=== PATIENT | male | born 2000 | race Caucasian/White ===

== ENCOUNTER 2024-05-26 21:52 | Observation (INO) | payer OTHER, SELFPAY ==
[2024-05-26] VITALS (13 sets, daily range): BP systolic 130–148; BP diastolic 68–105; PULSE 88–104; RESP 16–23; TEMP 36.8–37.1; O2SAT 91–98
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
--- NOTE | 2024-05-26 22:02 | ED.GENADULT ---
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 Fracture type: closed Fracture morphology: other extra-articular Qualified Code(s): S52.552A - Other extraarticular fracture of lower end of left radius, initial encounter for closed fracture Admit Date/Time: 05/27/24 01:01 Admit Provider: Manda Bryan
--- NOTE | 2024-05-26 22:03 | EKG_ITS ---
[place] [id number] [place] [id number] Test Date: 2024-05-26 Pat Name: Robin York Department: 

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
--- NOTE | 2024-05-26 22:07 | DI.RAD.S_ITS ---
PROCEDURE: XR HAND RT MIN 3V INDICATIONS: right fifth finger injury TECHNIQUE: 3 views of the hand(s) acquired. COMPARISON: None. FINDINGS: Bones: No fractures or dislocations. Carpal bones are normally aligned. No suspicious bony lesions. Soft tissues: Soft tissue laceration adjacent to 5th finger at the level of 5th middle phalanx/PIP joint is seen. No radiopaque foreign bodies. No suspicious soft tissue calcifications. IMPRESSION: No acute right hand fracture or dislocation. Laceration near 5th PIP joint. No radiopaque foreign bodies seen. Dictated by: Luis M Valerio M.D. on 05/26/2024 at 23:21 Approved by: Luis M Valerio M.D. on 05/26/2024 at 23:22
[2024-05-26] MEDS: HYDROMORPHONE 0.5 MG INJ IV ×3 (22:10→22:46)
[2024-05-26] MEDS: ONDANSETRON 4 MG/2 ML INJ IV (22:10)
[2024-05-26 22:13] LABS: Add Manual Diff / Slide Review NO; Basophils Absolute Auto 100 /uL (0-100); Basophils Percent Auto 0.4 % (0-2); Eosinophils Absolute Auto 100 /uL (0-450); Eosinophils Percent Auto 0.5 % (2-4); Hemoglobin 16.9 g/dL (13.5-17.5); Lymphocytes Absolute Auto 1900 /uL (1100-4500); Mean Corpuscular HGB Conc 35.1 % (30-36); Mean Corpuscular Hemoglobin 31.1 PG (26-34); Mean Corpuscular Volume 88.6 fL (80-100); Monocytes Absolute Auto 700 /uL (0-900); Monocytes Percent Auto 5.2 % (3-14); Neutrophils Absolute Auto 11700 /uL (1500-7000); Neutrophils Percent Auto 80.9 % (50-75); Platelet Count 224 X10^3/uL (150-400); Red Blood Cell Count 5.41 X10^6/uL (4.5-5.9); Red Cell Distribution Width 12.8 % (11.6-14.8); White Blood Cell Count 14.5 X10^3/uL (4.5-11.0)
[2024-05-26 22:21] LABS: Prothrombin Time 11.3 SECONDS (9.4-12.5)
[2024-05-26 22:24] LABS: PTT Partial Thromboplastin Tim 28 SECONDS (25.1-36.5)
[2024-05-26 22:26] LABS: Alanine Aminotransferase 87 IU/L (<50); Albumin Globulin Ratio 1.5 (1.0-2.8); Alkaline Phosphatase 66 U/L (38-126); Aspartate Aminotransferase 84 IU/L (17-59); BUN Creatinine Ratio 7.3 (6-22); Bilirubin Total 0.7 mg/dL (0.2-1.3); Blood Urea Nitrogen 8 mg/dL (9-20); Calcium 8.7 mg/dL (8.4-10.2); Carbon Dioxide 20 mmol/L (22-32); Chloride 104 mmol/L (98-107); Estimated Glomerular Filt Rate > 60 mL/min (>60); Ethanol (ETOH) 189 mg/dL; Globulin 3.4 g/dL (1.7-4.1); Glucose 110 mg/dL (70-100); HEMOLYSIS < 15 (0-50); Lactate (Lactic Acid) 2.6 mmol/L (0.7-2.1); Lipase 86 U/L (23-300); Sodium 139 mmol/L (137-145); Total Protein 8.4 g/dL (6.3-8.2)
--- NOTE | 2024-05-26 22:34 | PC.NURSE ---
Now back from imaging
[2024-05-26] MEDS: TET,DIPH,PERTUSS(ACELL),VAC/PF 0.5 ML SYRINGE IM (22:39)
[2024-05-26] MEDS: SODIUM CHLORIDE 0.9% 1,000 ML 1000 ML IV (22:42)
[2024-05-26] MEDS: CEFAZOLIN 2 GM/100 ML PREMIX 100 ML IV (22:47)
[2024-05-26 23:40] LABS: Lactate (Lactic Acid) 1.8 mmol/L (0.7-2.1)
[2024-05-26 23:44] LABS: Reflexed Lactate in 2 Hours Y
--- NOTE | 2024-05-26 23:54 | PC.WOUNDPHOT ---
Right fifth digit open wound
--- NOTE | 2024-05-26 23:57 | DI.RAD.S_ITS ---
PROCEDURE: XR FOREARM LT 2V INDICATIONS: left forearm TECHNIQUE: 2 views of the forearm were acquired. COMPARISON: [facility], CR, XR WRIST LT 2V, 05/26/2024, 22:35. [facility], CR, XR HAND RT MIN 3V, 05/26/2024, 22:35. FINDINGS: Bones: Again noted is comminuted and displaced fracture involving distal radial shaft with overlapping and dorsal angulation at fracture site. No proximal to mid forearm fracture. There is interval reduction of distal radial fracture and dislocation at distal radial ulnar joint with improved forearm alignment. Soft tissues: No suspicious soft tissue calcifications or masses. IMPRESSION: Suggestion of interval reduction of earlier noted comminuted distal radial fracture and distal radial ulnar joint dislocation with improved left wrist alignment. No proximal to mid forearm fracture. Dictated by: Luis M Valerio M.D. on 05/27/2024 at 0:30 Approved by: Luis M Valerio M.D. on 05/27/2024 at 0:32
--- NOTE | 2024-05-26 23:59 | DI.RAD.S_ITS ---
PROCEDURE: XR FINGER RT MIN 2V INDICATIONS: right fifth finger XRay series TECHNIQUE: AP hand, 2 views of the 5th finger(s) acquired. COMPARISON: None. FINDINGS: Bones: Tiny calcification adjacent to radial aspect of 5th middle phalangeal base concerning for tiny chip fracture in this area suggest clinical correlation. No suspicious bony lesions. Soft tissues: Laceration and soft tissue swelling surrounding 5th PIP joint is seen. Faint tiny radiodensities are noted at the site of laceration concerning for tiny foreign bodies. IMPRESSION: 1. Finding may represent tiny tip fracture involving radial aspect of 5th middle phalangeal base. 2. Laceration and soft tissue swelling involving 5th PIP joint with possible tiny foreign bodies within soft tissue over ulnar aspect of 5th PIP joint. Dictated by: Luis M Valerio M.D. on 05/27/2024 at 0:32 Approved by: Luis M Valerio M.D. on 05/27/2024 at 0:34
[2024-05-27] VITALS (15 sets, daily range): BP systolic 111–152; BP diastolic 65–88; PULSE 71–108; RESP 16–21; TEMP 36.3–37.3; O2SAT 91–97; BMI 39.5
[2024-05-27] MEDS: KETOROLAC 30 MG/ML VIAL 15 MG IV (00:08)
[2024-05-27] MEDS: BACITRACIN OINT 0.9 GM PCKT 5 APPLIC TOP (00:09)
--- NOTE | 2024-05-27 00:10 | PC.NURSE ---
Superficial abrasions to head and lower extremities cleansed and Bacitracin applied topically
--- NOTE | 2024-05-27 00:11 | PC.NURSE ---
Additional XR images ordered; pt premedicated for pain with toradol.
--- NOTE | 2024-05-27 00:59 | PC.NURSE ---
Pt's [place] point of contact Fabricio RosasAtaxi-[phone], call for ride home
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
[2024-05-27] MEDS: LACTATED RINGERS 1,000 ML 42 ML IV ×2 (02:08→03:59)
--- NOTE | 2024-05-27 02:25 | SUR.OPER ---
Supine on padded OR bed, head on pillow, arms secured on padded arm boards at <90 degrees abduction, legs uncrossed, safety belt at thigh, tape over blanket over lower legs.
[2024-05-27] MEDS: LACTATED RINGERS 1,000 ML 100 ML IV (05:35)
[2024-05-27] MEDS: CEFAZOLIN 2 GM/100 ML PREMIX 100 ML IV (05:45)
[2024-05-27] MEDS: ACETAMINOPHEN 325 MG TABLET 650 MG PO (05:45)
[2024-05-27] MEDS: IBUPROFEN 400 MG TABLET PO ×2 (05:45→09:14)
[2024-05-27] MEDS: OXYCODONE IR 5 MG TABLET PO ×3 (06:26→12:43)
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
--- NOTE | 2024-05-27 13:01 | PC.NURSE ---
Pt A/O. left arm in cast CMS + right pinky finger in splint. CMS = Med for discomfort w/ good relief. Orders for D/C; pt given home instructions w/understanding. Pt escorted by staff via W/C to waiting vehicle. D/C in stable condition,
== END 2024-05-27 12:58 | disposition home or self-care (01) ==
LOC: ED 23:00 → AC 05-27 01:02
PROVIDERS: Admitting Provider Orthopaedic Surgery; Emergency Provider Emergency Medicine; Visit Provider Orthopaedic Surgery
PROC: (CPT 25520; principal; 2024-05-27 02:30)
DX: S62.616B Displaced fracture of proximal phalanx of right little finger, initial encounter for open fracture (principal); S52.302A Unspecified fracture of shaft of left radius, initial encounter for closed fracture; S52.202A Unspecified fracture of shaft of left ulna, initial encounter for closed fracture; V28.49XA Other motorcycle driver injured in noncollision transport accident in traffic accident, initial encounter; M54.50 Low back pain, unspecified; Y92.410 Unspecified street and highway as the place of occurrence of the external cause; F10.129 Alcohol abuse with intoxication, unspecified; Y90.6 Blood alcohol level of 120-199 mg/100 ml; Z23 Encounter for immunization
CPT/HCPCS: 25520; 26418; 36415; 70450; 71275; 72125; 73090; 73100; 73130; 73140; 73560; 74177; 80053; 80320; 83605; 83690; 85025; 85610; 85730; 86850; 86900; 86901; 90471; 93005; 96365; 96366; 96375; 96376; 97116; 97161; 97166; 97535; 99285; 99291; 99406; G0378; 90715; G0390; J0330; J0690; J1100; J1171; J1885; J2405; J2704; J3010; Q9967

== ENCOUNTER 2024-06-03 09:28 | Day surgery (SDC) | payer OTHER, SELFPAY ==
[2024-05-27 04:41] VITALS: BMI 39.5
[2024-06-03] VITALS (15 sets, daily range): BP systolic 127–155; BP diastolic 90–110; PULSE 82–102; RESP 10–16; TEMP 36.4–36.8; O2SAT 90–99; BMI 35.4
[2024-06-03] MEDS: LACTATED RINGERS 1,000 ML 42 ML IV ×2 (10:55→12:31)
[2024-06-03] MEDS: ACETAMINOPHEN 325 MG TABLET 975 MG PO (10:57)
--- NOTE | 2024-06-03 11:00 | PM.PREOP ---
Pre-operative Note Interval Note History & Physical reviewed/Exam performed by Physician: Yes Changes to H&P: No
[2024-06-03] MEDS: CEFAZOLIN 2 GM/100 ML PREMIX 100 ML IV (11:54)
--- NOTE | 2024-06-03 12:13 | SUR.OPER ---
Supine on padded OR bed, head on pillow, right arms secured on padded arm board at <90 degrees abduction, left arm resting on arm table, legs uncrossed, safety belt at thigh, tape over blanket over lower legs.
[2024-06-03] MEDS: BUPIVACAINE 0.5% (PF) 30 ML VIAL INJ (12:23)
[2024-06-03] MEDS: HYDROMORPHONE 1 MG INJ IV ×2 (14:04→14:19)
[2024-06-03] MEDS: hydrOXYzine 50 MG/ML INJ 25 MG IM (14:07)
[2024-06-03] MEDS: OXYCODONE IR 5 MG TABLET PO ×2 (14:09→14:45)
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
[2024-06-03] MEDS: fentaNYL 100 MCG/2 ML INJ IV ×2 (14:28→14:37)
== END 2024-06-03 16:30 | disposition home or self-care (01) ==
PROVIDERS: Referring Provider Orthopaedic Surgery; Visit Provider Orthopaedic Surgery
PROC: (CPT 25337; principal; 2024-06-03 11:45)
DX: S52.352A Displaced comminuted fracture of shaft of radius, left arm, initial encounter for closed fracture (principal); S63.012A Subluxation of distal radioulnar joint of left wrist, initial encounter; V29.99XA Rider (driver) (passenger) of other motorcycle injured in unspecified traffic accident, initial encounter
CPT/HCPCS: 25337; 25515; C1713; J0330; J0690; J1100; J1171; J2250; J2405; J2704; J3010; J3410